=== PATIENT | male | born 1970 | race Caucasian/White ===

== ENCOUNTER 2018-08-03 06:27 | Emergency (ER) | payer BC ==
[~2018-08-03] VITALS: Ht 177.8 cm; Wt 117.9 kg
[~2018-08-03 06:27] MED LIST: ASPIR 8181 M1 PO; COZAAR 50 MG TA50 M2 PO; CRESTOR10 MG PO; GLIPIZIDE XL5 MG PO; GLUCAGON EMERGEN1 MG IJ; GLUCOPHAGE500 MG PO; NOVOLOG100 UNIT/1 SUBQ; OMEPRAZOLE 20 M20 M1 PO
[2018-08-03 06:54] LABS: HEMATOCRIT 51.9 % (42.0-52.0); HEMOGLOBIN 17.7 gm/dL (14.0-18.0); MCH 31.1 pg (26.0-34.0); MCHC 34.1 g/dL (28.0-37.0); MCV 91.3 fL (80.0-100.0); MPV 10.7 fl. (7.2-11.1); NUCLEATED RBCS 0 /100WBC; PLATELET COUNT* 170 thou/uL (150-400); RBC 5.69 mil/uL (4.50-6.00); WBC 9.6 thou/uL (4.0-11.0)
[2018-08-03 07:02] LABS: CALCIUM 8.8 mg/dL (8.5-10.1); CREATININE 1.1 mg/dL (0.6-1.3); POTASSIUM 4.1 mmol/L (3.5-5.1)
[2018-08-03 07:07] LABS: ALBUMIN 3.3 g/dL (3.4-5.0); TOTAL BILIRUBIN 0.8 mg/dL (<0.1-1.0); TOTAL PROTEIN 8.2 g/dL (6.4-8.2)
[2018-08-03 07:30] LABS: ABSOLUTE EOSINOPHILS 0.1 thou/uL (0.0-0.7); ABSOLUTE LYMPHOCYTES 0.4 thou/uL (0.8-5.3); ABSOLUTE NEUTROPHILS 9.1 thou/uL (1.6-8.1); PLATELET ESTIMATE ADEQUATE
[2018-08-03 07:53] LABS: URINE BLOOD NEGATIVE (Negative); URINE CLARITY CLEAR; URINE COLOR YELLOW; URINE GLUCOSE-RANDOM 2+ (Negative); URINE KETONES TRACE (Negative); URINE LEUKOCYTES-REFLEX NEGATIVE (Negative); URINE NITRITE-REFLEX NEGATIVE (Negative); URINE PROTEIN TRACE (Negative); URINE SPECIFIC GRAVITY >= 1.030 (1.005-1.030); URINE UROBILINOGEN 0.2 E.U./dl (0.2-1.0)
[2018-08-03 07:54] LABS: ICTOTEST (BILI CONFIRMATORY) Positive (Negative); URINE BILIRUBIN 1+ (Negative)
[2018-08-03] MEDS ORDERED: GLUCOPHAGE XR500 M1 PO (08:17)
[2018-08-03] MEDS ORDERED: GLIPIZIDE ER5 MG PO (08:17)
[2018-08-03] MEDS ORDERED: ZOFRAN ODT4 MG SUBLING (08:17)
[2018-08-03 08:40] VITALS: BP 114/62
== END 2018-08-03 08:37 | disposition home or self-care (01) ==
LOC: M.ERS 06:27
PROVIDERS: Emergency Medicine
DX: R11.2 Nausea with vomiting, unspecified (principal); R33.9 Retention of urine, unspecified; E11.65 Type 2 diabetes mellitus with hyperglycemia; I10 Essential (primary) hypertension; E78.5 Hyperlipidemia, unspecified; Z87.01 Personal history of pneumonia (recurrent); F17.210 Nicotine dependence, cigarettes, uncomplicated; Z88.8 Allergy status to other drugs, medicaments and biological substances

== ENCOUNTER → 2019-12-06 | Outpatient (CLI) | payer BC ==
[~2019-12-06] MED LIST changes: +GLIPIZIDE ER5 MG PO; +GLUCOPHAGE XR500 M1 PO; +ZOFRAN ODT4 MG SUBLING
== END ==
LOC: M.ULTRA 08:00
PROVIDERS: ATTEND Family Medicine
DX: K76.0 Fatty (change of) liver, not elsewhere classified (principal); R16.1 Splenomegaly, not elsewhere classified; N20.0 Calculus of kidney; Z90.49 Acquired absence of other specified parts of digestive tract